=== PATIENT | male | born 1950 ===

== ENCOUNTER → 2018-02-24 21:26 | Outpatient (REF) | payer OTHER, SELFPAY ==
[2018-02-24 22:41] LABS: Add Manual Diff / Slide Review NO; Basophils Percent Auto 0.9 % (0-2); Eosinophils Percent Auto 2.7 % (2-4); Hematocrit 47.7 % (41-53); Hemoglobin 16.3 g/dL (13.5-17.5); Lymphocytes Percent Auto 34.5 % (25-40); Mean Corpuscular HGB Conc 34.1 % (30-36); Mean Corpuscular Volume 93.8 fL (80-100); Monocytes Percent Auto 5.3 % (3-14); Neutrophils Absolute Auto 2500 /uL (3000-5900); Neutrophils Percent Auto 56.6 % (50-75); Platelet Count 199 X10^3/uL (150-400); Red Blood Cell Count 5.08 X10^6/uL (4.5-5.9); Red Cell Distribution Width 13.2 % (11.6-14.8); White Blood Cell Count 4.4 X10^3/uL (4.5-11.0)
[2018-02-24 23:09] LABS: Urine N gonorrhoeae NOT DETECTED
[2018-02-24 23:25] LABS: Hepatitis B Surface Antigen NEGATIVE s/c (NEGATIVE); Urine Chlamydia NOT DETECTED
[2018-02-24 23:39] LABS: Alanine Aminotransferase 24 IU/L (21-72); Albumin 4.6 g/dL (3.5-5.0); Albumin Globulin Ratio 1.5 (1.0-2.8); Alkaline Phosphatase 74 U/L (38-126); Aspartate Aminotransferase 25 IU/L (17-59); BUN Creatinine Ratio 14.4 (6-22); Bilirubin Total 0.8 mg/dL (0.2-1.3); Blood Urea Nitrogen 13 mg/dL (9-20); Calcium 9.4 mg/dL (8.4-10.2); Carbon Dioxide 29 mmol/L (22-32); Chloride 101 mmol/L (98-107); Cholesterol 195 mg/dL (140-199); Estimated Glomerular Filt Rate > 60.0 mL/min (>60); Globulin 3.1 g/dL (1.7-4.1); Glucose 91 mg/dL (80-110); HDL Cholesterol 59 mg/dL (40-60); HEMOLYSIS < 15 (0-50); LDL Cholesterol Calculated 112 mg/dL (<100); Potassium 4.2 mmol/L (3.4-5.1); Sodium 142 mmol/L (137-145); Total Protein 7.7 g/dL (6.3-8.2); Triglycerides 119 mg/dL (35-150)
[2018-02-24 23:40] LABS: Hep C Virus Ab w/Reflex Quant NEGATIVE s/c (NEGATIVE)
[2018-02-25 04:07] LABS: TSH w/ Reflex to FT4 1.73 uIU/mL (0.47-4.68)
[2018-02-26 14:01] LABS: RPR Screen Nonreactive (Nonreactive)
[2018-02-26 15:22] LABS: Hepatitis B Core Antibody Reactive (Nonreactive)
[2018-02-26 19:25] LABS: HIV Ag/Ab, 4th Gen Nonreactive (Nonreactive)
[2018-03-01 14:45] LABS: PSA, Total 0.7 ng/mL (< 4.1)
[2018-03-01 15:15] LABS: Hepatitis B Surf Ab Qualitativ Borderline (Nonreactive)
== END ==
LOC: LAB 21:26
PROVIDERS: Visit Provider Naturopath
DX: Z00.00 Encounter for general adult medical examination without abnormal findings (principal); Z11.3 Encounter for screening for infections with a predominantly sexual mode of transmission
CPT/HCPCS: 80053; 80061; 82728; 84153; 84154; 84443; 85025; 86592; 86703; 86704; 86706; 86803; 87340; 87491; 87591